=== PATIENT | female | born 1980 | race Caucasian/White ===

== ENCOUNTER 2016-10-05 19:57 | Inpatient (IN) | payer MEDICAID ==
[~2016-10-05] VITALS: Ht 157.5 cm; Wt 71.3 kg
[~2016-10-05 19:57] MED LIST: ASPI-587 PO; FOLIC ACID; [UNRECOGNIZED DRUG - OTHER]
[2016-10-05] MEDS ORDERED: D5 LR IV SOLUTION 1,000 ML IV ONE (20:35)
[2016-10-05] MEDS ORDERED: D5 LR IV SOLUTION 1,000 ML IV SCH (20:58)
[2016-10-05] MEDS ORDERED: LACTATED RINGERS 1,000 ML IV SCH (20:58)
[2016-10-05 21:00] VITALS: BP 129/91
[2016-10-05] MEDS ORDERED: MISOPROSTOL 100 MCG (CYTOTEC) TAB PO ONE (21:00)
[2016-10-05 21:04] LABS: BASOPHILS % (AUTO) 0 % (0-10); EOSINOPHILS % (AUTO) 0 % (0-10); LYMPHOCYTES # (AUTO) 1.5 X 10^3 (1.0-4.0); LYMPHOCYTES % (AUTO) 21 % (12-44); MEAN CORPUSCULAR HEMOGLOBIN 30 PG (25-34); MEAN CORPUSCULAR HGB CONC 33 G/DL (32-36); MEAN CORPUSCULAR VOLUME 91 FL (80-99); MEAN PLATELET VOLUME 10.9 FL (7.4-10.4); MONOCYTES # (AUTO) 0.6 X 10^3 (0.0-1.0); MONOCYTES % (AUTO) 9 % (0-12); NEUTROPHILS % (AUTO) 70 % (42-75); PLATELET COUNT 195 10^3/uL (130-400); RED BLOOD COUNT 4.24 10^6/uL (4.35-5.85); RED CELL DISTRIBUTION WIDTH 14.6 % (10.0-14.5); WHITE BLOOD COUNT 7.2 10^3/uL (4.3-11.0)
[2016-10-05 21:06] LABS: BILIRUBIN,URINE NEGATIVE (NEGATIVE); KETONES,URINE 1+ (NEGATIVE); LEUKOCYTE ESTERASE ,URINE 1+ (NEGATIVE); NITRITE,URINE NEGATIVE (NEGATIVE); PH,URINE 6 (5-9); PROTEIN,URINE 1+ (NEGATIVE); UROBILINOGEN,URINE NORMAL (NORMAL)
[2016-10-05] MEDS ORDERED: CATHETER FLUSH 10 ML SYR IV SCH (22:00)
[2016-10-05 23:00] VITALS: BP 114/75
[2016-10-06] VITALS (36 sets, daily range): BP systolic 78–139; BP diastolic 53–85
[2016-10-06] MEDS ORDERED: MISOPROSTOL 100 MCG (CYTOTEC) TAB PO SCH (01:00)
[2016-10-06] MEDS ORDERED: LAMO150T3 PO (01:47)
[2016-10-06] MEDS ORDERED: PREN-53 PO (01:47)
[2016-10-06] MEDS ORDERED: SERT25TA PO (01:50)
--- NOTE | 2016-10-06 08:06 | History & Physical-OB ---
OB - Chief Complaint & HPI Date Date of Admission: Date of Admission: Oct 05, 2016 at 7:57 pm Chief Complaint/History OB-Reason for Admission/Chief: Induction of Labor Hx : 4 Hx Para: 1 Expected Date of Delivery: October 16, 2016 Gestational Age in Weeks: 38 Indication for induction: medical complication (AMA, Abnormal quad screen, SGA) Admission Nurse Assessment Rev: Yes History of Labs O pos Antibody neg RI HIV NR HBsAg NR GC neg GBS neg Allergies and Home Medications Allergies Coded Allergies: No Known Drug Allergies (Unverified , 08/13/14) Home Medications Lamotrigine 150 Mg Tablet, 150 MG PO HS, (Reported) [id number]/Iron Fumarate/FA/Dss 1 Each Tablet, 1 EACH PO DAILY, (Reported) Sertraline HCl 25 Mg Tablet, 25 MG PO DAILY, (Reported) [Folic Acid] , (Reported) OB - History Hx of Present Care: Yes Ultrasounds: Normal mid trimester US Obstetrical Complications: Other (SGA 10% tile) Delivery History Hx Blood Disorders: No Adverse Rxn to Tranfusion: No Patient Past Medical History Seizure disorder Social History/Family History HIV/AIDS: No Recent Infectious Disease Expo: No Sexually Transmitted Disease: No Alcohol Use: Denies Use Recreational Drug Use: No Immunizations Hepatitis A: Yes Hepatitis B: Yes OB - Admission Exam Physical Exam Vitals: Vital Signs 10/06/16 10/06/16 05:00 07:00 Temp 98.3 Pulse 75 Resp 18 B/P (MAP) 115/69 O2 Delivery Room Air HEENT: NCAT Heart: Rhythm Normal Lungs: Clear Abdomen: Gravid Extremities: Normal Reflexes: Normal Cervical Dilatation: 2cm Effacement: 75% Station: -1 Membranes: Intact Heart Rate: 130's Accelerations: Accelerations Present Decelerations: No Decelerations Short Term Variability: Present Trimmer Helper Variability: Average (6-25) Contractions on Admission: >10 Minutes Apart Intensity: Mild [place] Scoring Tool (Modified) Dilation (cm): 1-2cm (1) Effacement (%): 51-79% (2) Descent/Station: -1,0 (2) Cervix Consistency: Soft (2) Cervix Position: Anterior (2) Add 1 point for: Each previous vaginal delivery (1) [place] Score: 10 Labs Laboratory Tests Test 10/05/16 20:30 Range/Units White Blood Count 7.2 4.3-11.0 10^3/uL Red Blood Count 4.24 L 4.35-5.85 10^6/uL Hemoglobin 12.7 11.5-16.0 G/DL Hematocrit 39 35-52 % Mean Corpuscular Volume 91 80-99 FL Mean Corpuscular Hemoglobin 30 25-34 PG Mean Corpuscular Hemoglobin Concent 33 32-36 G/DL Red Cell Distribution Width 14.6 H 10.0-14.5 % Platelet Count 195 130-400 10^3/uL Mean Platelet Volume 10.9 H 7.4-10.4 FL Neutrophils (%) (Auto) 70 42-75 % Lymphocytes (%) (Auto) 21 12-44 % Monocytes (%) (Auto) 9 0-12 % Eosinophils (%) (Auto) 0 0-10 % Basophils (%) (Auto) 0 0-10 % Neutrophils # (Auto) 5.0 1.8-7.8 X 10^3 Lymphocytes # (Auto) 1.5 1.0-4.0 X 10^3 Monocytes # (Auto) 0.6 0.0-1.0 X 10^3 Eosinophils # (Auto) 0.0 0.0-0.3 10^3/uL Basophils # (Auto) 0.0 0.0-0.1 10^3/uL Urine Color YELLOW Urine Clarity CLEAR Urine pH 6 5-9 Urine Specific [place] 1.025 H 1.016-1.022 Urine Protein 1+ H NEGATIVE Urine Glucose (UA) NEGATIVE NEGATIVE Urine Ketones 1+ H NEGATIVE Urine Nitrite NEGATIVE NEGATIVE Urine Bilirubin NEGATIVE NEGATIVE Urine Urobilinogen NORMAL NORMAL MG/DL Urine Leukocyte Esterase 1+ H NEGATIVE Urine RBC (Auto) NEGATIVE NEGATIVE Urine RBC NONE /HPF Urine WBC 2-5 /HPF Urine Squamous Epithelial Cells 10-25 H /HPF Urine Crystals NONE /LPF Urine Bacteria MODERATE H /HPF Urine Casts NONE /LPF Urine Mucus SMALL H /LPF Urine Culture Indicated NO OB - Assessment/Plan/Diagnosis Assessment Assessment: induction of labor Plan Plan: Induction Induction Method: per Misoprostol Protocol Discharge Diagnosis Diagnosis: 36 yo @ 38 weeks Abnormal quad screen AMA Seizure disorder on lamictal GBS neg SHUN WILHELM DO Oct 06, 2016 8:06 am
[2016-10-06] MEDS ORDERED: SUFENTA 0.6MCG/ML BUPIVA 0.125 100 ML ONE (08:14)
[2016-10-06] MEDS ORDERED: HYDROmorphone (DILAUDID) 2 MG/ML VIAL IVP NR (09:15)
[2016-10-06] MEDS ORDERED: fentaNYL INJECTION 100 MCG/2 ML AMP ONE (09:32)
[2016-10-06] MEDS ORDERED: BUPIVACAINE 0.25% 30 ML (SENSORCAINE) VIAL ONE (09:32)
[2016-10-06] MEDS ORDERED: LACTATED RINGERS 1,000 ML IV SCH (09:47)
[2016-10-06] MEDS ORDERED: fentaNYL INJECTION 100 MCG/2 ML AMP IVP ONE (10:00)
[2016-10-06] MEDS ORDERED: ONDANSETRON 4 MG/2 ML (SDV) Z0FRAN IV PRN (10:00)
[2016-10-06] MEDS ORDERED: NALOXONE 0.4 MG/ML 1 ML (NARCAN) VIAL IV PRN ×2 (10:00)
[2016-10-06] MEDS ORDERED: EPIDURAL (SUFENTA 0.6MCG/ML BUPIVA 0.125%) 100 ML BAG EPI SCH (10:00)
[2016-10-06] MEDS ORDERED: METOCLOPRAMIDE INJ 10 MG/2 ML (REGLAN) IV PRN (10:00)
[2016-10-06] MEDS ORDERED: BUPIVACAINE 0.25% 30 ML (SENSORCAINE) VIAL INJ ONE (10:00)
[2016-10-06] MEDS ORDERED: diphenhydrAMINE 50 MG/ML INJ (BENADRYL) IV PRN (10:00)
[2016-10-06] MEDS ORDERED: LIDOCAINE/EPI 1%-1:200,000 (XYLOCAINE) 30 ML VIAL ONE (10:51)
[2016-10-06] MEDS ORDERED: OXYTOCIN/NORMAL SALINE 500 ML IV ONE (10:51)
[2016-10-06] MEDS: OXYTOCIN/NORMAL SALINE 500 ML IV SCH ×2 (12:00→12:50)
[2016-10-06] MEDS ORDERED: WITCH HAZEL(TUCKS) 40 EA JAR TOP PRN (12:15)
[2016-10-06] MEDS ORDERED: DIBUCAINE (NUPERCAINAL) 1% OINT 30 GM TOP PRN (12:15)
[2016-10-06] MEDS ORDERED: MEASLES,MUMPS,RUBELLA 1 EA INJ SQ ONE (12:15)
[2016-10-06] MEDS ORDERED: TETANUS,DIPTH,PERTUSS P/F (BOOSTRIX) 0.5 ML VIAL IM ONE (12:15)
[2016-10-06] MEDS ORDERED: BENZOCAINE/MENTHOL (DERMOPLAST) 56 ML CAN TP PRN (12:15)
--- NOTE | 2016-10-06 12:16 | OB Labor & Delivery Record ---
L&D History Date of Service Date of Service: Oct 06, 2016 History Expected Date of Delivery: October 16, 2016 Gestational Age in Weeks: 38 Hx : 4 Hx Para: 1 Complications Events: Routine care Operative Indications (Cesarea: N/A-Vaginal Delivery Intrapartal Events: None Other Complications moderate bleeding throughout active labor L&D Stage1 Stage One Onset of Labor - Date: Oct 06, 2016 Monitors and Tracing Monitor Mode: External Heart Rate: 125 Station: -2 Short Term Variability: Present Presentation: Vertex Vital Signs VS - Last 72 Hours, by Label 10/05/16 10/05/16 10/06/16 10/06/16 21:00 23:00 00:00 01:00 Temp 98.4 Pulse 104 70 62 65 Resp 18 18 18 18 B/P (MAP) 129/91 114/75 118/83 132/77 O2 Delivery Room Air Room Air Room Air Room Air 10/06/16 10/06/16 10/06/16 10/06/16 02:00 03:00 05:00 06:00 Temp 98.3 Pulse 67 75 75 72 Resp 18 18 18 18 B/P (MAP) 111/70 139/82 119/85 116/75 O2 Delivery Room Air Room Air Room Air Room Air 10/06/16 10/06/16 10/06/16 10/06/16 07:00 07:30 08:00 08:30 Pulse 75 75 71 71 Resp 18 18 18 18 B/P (MAP) 115/69 115/69 116/79 116/79 O2 Delivery Room Air Room Air Room Air Room Air 10/06/16 10/06/16 10/06/16 10/06/16 09:00 09:30 09:33 09:36 Pulse 83 83 81 Resp 18 18 18 18 B/P (MAP) 135/79 130/77 134/78 Pulse Ox 98 98 97 O2 Delivery Room Air Room Air Room Air Room Air 10/06/16 10/06/16 10/06/16 10/06/16 09:39 09:40 09:43 09:45 Temp 97.9 Pulse 78 88 117 Resp 18 18 18 18 B/P (MAP) 136/79 125/85 111/83 Pulse Ox 97 97 97 98 O2 Delivery Room Air Room Air Room Air Room Air 4/24/17 09:46 Pulse 108 Resp 18 B/P (MAP) 96/53 Pulse Ox 97 O2 Delivery Room Air Rupture of Membranes Spontaneous Ruture of Membrane: No Amniotic Membrane Rupture Time: 08:20 Amniotic Membrane Fluid Desc.: Bloody Induction/Anesthesia Epidural Cath Placement - Time: 31 L&D Stage2 Stage Two Stage II Date: Oct 06, 2016 Monitors and Tracing Monitor Mode: External Heart Rate: 125 Monitor Accelerations: None Monitor Decelerations: Variable Snf Variability: Moderate (11-25) Short Term Variability: Present Position: Right Occiput Anterior Presentation: Vertex Cord Descript/Complications Cord Vessel Description: 3 Vessels Delivery Type Infant Delivery Method: Spontaneous Vaginal Anterior Shoulder: Right Episiotomy/Perineal Laceration Laceraction(s)/Extensions: Yes Episiotomy Description: Midline, 1st degree Sutures Used: Vicryl (3-0 rapide) Condition of Delivery 1 minute Comment: 8 5 minute Comment: 9 Notes live male infant weight 7lbs 9 oz APGARs 8/9 Condition of Infant Condition of : Living Exam: No Observed Abnormalities Resuscitation Resuscitation: N/A - Spontaneous Resp L&D Stage3 Stage Three Stage III Date: Oct 06, 2016 Pictocin Pitocin Administration Comment: 30 mu wide open at delivery of placneta Placenta Delivery Placenta Delivery: Spontaneous Delivery Summary Summary blood loss >1000ml: No Vaginal blood loss >500ml: No 400 Attending at delivery: Shun Wilhelm DO Condition of Delivery Examined: Cervix Examined, Uterus Explored Post Hemorrhage: No Condition of Mother stable Condition of (s) stable SHUN WILHELM DO Oct 06, 2016 12:16
--- NOTE | 2016-10-06 12:17 | Discharge Inst-Women's Service ---
Discharge Inst-Women's Serv Depart Medication/Instructions New, Converted or Re-Newed RX: RX on Chart Consults/Follow Up Additional Follow Up: Yes Orders/Referrals Dr. Wilhelm i n6 weeks Activity Activity: Activity as Tolerated Driving Instructions: No Driving for 1 Week NO SMOKING: NO SMOKING Nothing Inside Vagina: No Douching, No [place], No Tampons Diet Discharge Diet: No Restrictions Symptoms to Report to : Bleeding Excessive, Pain Increased, Fever Over 101 Degrees F, Vaginal Bleeding Increase, Questions/Concerns For Any Problems or Questions: Contact Your Physician Skin/Wound Care Bathing Instructions: Shower (x 2 weeks) SHUN WILHELM DO Oct 06, 2016 12:17 pm
[2016-10-06] MEDS ORDERED: FERR-74 PO (12:19)
[2016-10-06] MEDS ORDERED: DOCU100C37 PO (12:19)
[2016-10-06] MEDS ORDERED: ACET1TAB43 PO (12:19)
[2016-10-06] MEDS ORDERED: IBUP-1773 PO (12:19)
[2016-10-06] MEDS ORDERED: OXYTOCIN/NORMAL SALINE 500 ML IV SCH (13:00)
[2016-10-06] MEDS ORDERED: CATHETER FLUSH 10 ML SYR IV SCH (14:00)
[2016-10-06] MEDS: IBUPROFEN 600 MG (MOTRIN) TAB PO SCH ×2 (14:08→20:19)
[2016-10-06] MEDS: DOCUSATE SODIUM 100 MG (COLACE) CAP PO SCH (20:19)
[2016-10-07] VITALS: BP 108/70
[2016-10-07] MEDS: IBUPROFEN 600 MG (MOTRIN) TAB PO SCH ×4 (02:08→20:43)
[2016-10-07 04:00] VITALS: BP 102/68
[2016-10-07 06:55] LABS: BASOPHILS % (AUTO) 0 % (0-10); EOSINOPHILS # (AUTO) 0.1 10^3/uL (0.0-0.3); EOSINOPHILS % (AUTO) 1 % (0-10); LYMPHOCYTES # (AUTO) 1.8 X 10^3 (1.0-4.0); LYMPHOCYTES % (AUTO) 17 % (12-44); MEAN CORPUSCULAR HEMOGLOBIN 30 PG (25-34); MEAN CORPUSCULAR HGB CONC 32 G/DL (32-36); MEAN CORPUSCULAR VOLUME 93 FL (80-99); MEAN PLATELET VOLUME 10.8 FL (7.4-10.4); MONOCYTES # (AUTO) 0.6 X 10^3 (0.0-1.0); MONOCYTES % (AUTO) 5 % (0-12); NEUTROPHILS # (AUTO) 8.2 X 10^3 (1.8-7.8); NEUTROPHILS % (AUTO) 77 % (42-75); PLATELET COUNT 144 10^3/uL (130-400); RED BLOOD COUNT 3.24 10^6/uL (4.35-5.85); RED CELL DISTRIBUTION WIDTH 14.3 % (10.0-14.5); WHITE BLOOD COUNT 10.7 10^3/uL (4.3-11.0)
[2016-10-07] MEDS ORDERED: TETANUS,DIPTH,PERTUSS P/F (BOOSTRIX) 0.5 ML VIAL IM ONE (08:41)
[2016-10-07 09:47] VITALS: BP 99/67
[2016-10-07] MEDS: DOCUSATE SODIUM 100 MG (COLACE) CAP PO SCH ×2 (09:47→20:43)
[2016-10-07] MEDS: FERROUS SULF 325 MG (IRON) TAB PO SCH (09:47)
[2016-10-07] MEDS: PRENATAL VITAMIN 1 EA TAB PO SCH (09:47)
[2016-10-07 13:00] VITALS: BP 128/82
--- NOTE | 2016-10-07 13:02 | Anesthesia-Regional Post-Op ---
Regional Patient Condition Mental Status: Alert, Oriented x3 Circulation: Same as Pre-Op Headache: Absent Sensation: Full Recovery Motor Block: Absent Post Op Complications Complications None Follow Up Care/Instructions Patient Instructions None needed. Anesthesia/Patient Condition Patient is doing well, no complaints, stable vital signs, no apparent adverse anesthesia problems. No complications reported per nursing. ARIA HINES CRNA Oct 07, 2016 13:02
[2016-10-07 17:45] VITALS: BP 105/69
[2016-10-07] MEDS: APAP 300 MG/CODEINE 30 MG (TYLENOL #3) TAB PO PRN (18:32)
[2016-10-07 21:55] VITALS: BP 109/74
[2016-10-08 03:05] VITALS: BP 128/77
[2016-10-08] MEDS: IBUPROFEN 600 MG (MOTRIN) TAB PO SCH ×2 (03:07→09:29)
[2016-10-08] MEDS: APAP 300 MG/CODEINE 30 MG (TYLENOL #3) TAB PO PRN (04:06)
--- NOTE | 2016-10-08 08:05 | Postpartum Progress Note ---
Note Note Day # 1 Subjective: Patient is without complaints. Ambulating, voiding. Tolerating a regular diet without nausea or vomiting. Normal lochia. Pain is well controlled with oral pain medications. Breast feeding. Objective: VS - Last 72 Hours, by Label 10/05/16 10/05/16 10/06/16 10/06/16 21:00 23:00 00:00 01:00 Temp 98.4 Pulse 104 70 62 65 Resp 18 18 18 18 B/P (MAP) 129/91 114/75 118/83 132/77 O2 Delivery Room Air Room Air Room Air Room Air 10/06/16 10/06/16 10/06/16 10/06/16 02:00 03:00 05:00 06:00 Temp 98.3 Pulse 67 75 75 72 Resp 18 18 18 18 B/P (MAP) 111/70 139/82 119/85 116/75 O2 Delivery Room Air Room Air Room Air Room Air 10/06/16 10/06/16 10/06/16 10/06/16 07:00 07:30 08:00 08:30 Pulse 75 75 71 71 Resp 18 18 18 18 B/P (MAP) 115/69 115/69 116/79 116/79 O2 Delivery Room Air Room Air Room Air Room Air 10/06/16 10/06/16 10/06/16 10/06/16 09:00 09:30 09:33 09:36 Pulse 83 83 81 Resp 18 18 18 18 B/P (MAP) 135/79 130/77 134/78 Pulse Ox 98 98 97 O2 Delivery Room Air Room Air Room Air Room Air 10/06/16 10/06/16 10/06/16 10/06/16 09:39 09:40 09:43 09:45 Temp 97.9 Pulse 78 88 117 Resp 18 18 18 18 B/P (MAP) 136/79 125/85 111/83 Pulse Ox 97 97 97 98 O2 Delivery Room Air Room Air Room Air Room Air 10/06/16 10/06/16 10/06/16 10/06/16 09:46 10:00 10:03 10:06 Pulse 108 82 66 Resp 18 22 18 18 B/P (MAP) 96/53 78/53 92/60 124/83 Pulse Ox 97 96 96 97 O2 Delivery Room Air Room Air Room Air Room Air 10/06/16 10/06/16 10/06/16 10/06/16 10:09 10:30 10:45 11:00 Pulse 97 90 76 Resp 22 B/P (MAP) 103/63 120/75 118/71 119/78 Pulse Ox 97 98 98 98 O2 Delivery Room Air Room Air Room Air Room Air 10/06/16 10/06/16 10/06/16 10/06/16 11:15 11:30 11:45 12:00 Temp 97.8 Pulse 130 82 101 110 Resp 18 B/P (MAP) 124/80 124/80 110/68 Pulse Ox 99 98 99 O2 Delivery Room Air Room Air Non Rebreather Non Rebreather O2 Flow Rate 15.00 15.00 10/06/16 10/06/16 10/06/16 10/06/16 12:19 12:34 12:49 13:04 Pulse 93 70 70 73 Resp 18 18 18 18 B/P (MAP) 122/78 125/81 120/80 117/76 O2 Delivery Room Air Room Air Room Air Room Air 10/06/16 10/06/16 10/06/16 10/06/16 13:19 13:34 13:49 17:49 Temp 97.9 Pulse 70 68 91 86 Resp 18 18 18 20 B/P (MAP) 121/80 114/75 118/81 119/76 Pulse Ox 96 O2 Delivery Room Air Room Air Room Air 10/06/16 10/07/16 10/07/16 10/07/16 20:20 00:00 04:00 09:47 Temp 97.7 97.8 98.4 97.0 Pulse 81 75 67 81 Resp 20 18 18 18 B/P (MAP) 115/79 108/70 102/68 99/67 Pulse Ox 97 98 97 97 O2 Delivery Room Air 10/07/16 10/07/16 10/07/16 10/08/16 13:00 17:45 21:55 03:05 Temp 99.3 99.0 98.9 98.4 Pulse 80 71 67 70 Resp 18 18 18 18 B/P (MAP) 128/82 105/69 109/74 128/77 Pulse Ox 98 98 98 98 O2 Delivery Room Air Room Air Room Air Room Air Physical Exam: General - Alert and oriented, no apparent distress Abdomen - Soft, appropriately tender to palpation, non-distended, fundus firm at umbilicus Extremities - no edema, negative Jonah's bilaterally no new labs Assessment: 36 y/o post- day # 1, status post spontaneous vaginal delivery. Recovering well, hemodynamically stable Acute blood loss anemia Hgb 9.7 Plan: Routine care. Encourage breast feeding. Encourage ambulation. Ferrous sulfate supplementation. Plan for discharge today, f/u with Dr. Underwood as scheduled Vitals - Labs Vital Signs - I&O Vital Signs Date Time Temp Pulse Resp B/P (MAP) Pulse Ox O2 Delivery O2 Flow Rate FiO2 10/08/16 03:05 98.4 70 18 128/77 98 Room Air 10/07/16 21:55 98.9 67 18 109/74 98 Room Air 10/07/16 17:45 99.0 71 18 105/69 98 Room Air 10/07/16 13:00 99.3 80 18 128/82 98 Room Air 10/07/16 09:47 97.0 81 18 99/67 97 Room Air BETH GREENE MD Oct 08, 2016 08:05
[2016-10-08] MEDS: DOCUSATE SODIUM 100 MG (COLACE) CAP PO SCH (09:29)
[2016-10-08] MEDS: FERROUS SULF 325 MG (IRON) TAB PO SCH (09:29)
[2016-10-08] MEDS: PRENATAL VITAMIN 1 EA TAB PO SCH (09:29)
[2016-10-08 09:30] VITALS: BP 125/81
== END 2016-10-08 13:30 | disposition home or self-care (01) | DRG 775 ==
LOC: LDRP 19:57
PROVIDERS: ADMIT Obstetrics & Gynecology; ATTEND Obstetrics & Gynecology
PROC: 10E0XZZ Delivery of Products of Conception, External Approach (ICD-10-PCS; principal; 2016-10-06)
PROC: 0HQ9XZZ Repair Perineum Skin, External Approach (ICD-10-PCS; 2016-10-06)
DX: O99.353 Diseases of the nervous system complicating pregnancy, third trimester (principal); G40.909 Epilepsy, unspecified, not intractable, without status epilepticus; O70.0 First degree perineal laceration during delivery; O99.03 Anemia complicating the puerperium; D62 Acute posthemorrhagic anemia; O09.523 Supervision of elderly multigravida, third trimester; Z3A.38 38 weeks gestation of pregnancy; Z37.0 Single live birth
CPT/HCPCS: 36415; 81000; 85025; 86850; 86900; 86901